=== PATIENT | female | born 1970 | race Hispanic/Latino ===

== ENCOUNTER 2018-04-16 17:45 | Emergency (ER) | payer OTHER ==
--- NOTE | 2018-04-16 18:46 | RAD ---
1 VIEW CHEST: Date: 04/16/18 \HISTORY: Pain. COMPARISON: None. FINDINGS: Normal cardiac silhouette. Pulmonary vessels and hilum are normal. Costophrenic angles are clear. No consolidation or mass. No pneumothorax or osseous abnormalities. IMPRESSION: No acute cardiopulmonary process. POS: [facility]
[2018-04-16 18:56] LABS: #Basophils 0.1 thou/uL (0.0-0.2); #Eosinphils 0.1 thou/uL (0.0-0.7); #Lymphocytes 2.4 thou/uL (1.20-3.40); #Monocytes 0.9 thou/uL (0.11-0.59); #Neutrophils 5.5 thou/uL (1.40-6.50); %Basophils 1.2 % (0.0-1.0); %Eosinophils 0.9 % (0.0-10.0); %Lymphocytes 26.5 % (21.0-51.0); %Monocytes 9.6 % (0.0-10.0); %Neutrophils 61.9 % (42.0-75.0); Hemoglobin 8.1 g/dL (12.0-16.0); Mean Corpuscular HGB CONC 30.1 g/dL (32.0-36.0); Mean Corpuscular Hemoglobin 22.4 pg (27.0-31.0); Mean Corpuscular Volume 74.4 fL (78.0-98.0); Mean Platelet Volume 11.7 fL (7.4-10.4); Platelet Count 245 thou/uL (130-400); RBC Distribution Width 15.3 % (11.5-14.5); Red Blood Cell (RBC) Count 3.61 mill/uL (4.20-5.40); White Blood Cell (WBC) Count 8.9 thou/uL (4.8-10.8)
[2018-04-16 19:15] LABS: ALT (SGPT) 8 U/L (8-55); AST (SGOT) 13 U/L (5-34); Albumin 3.7 g/dL (3.5-5.0); Alkaline Phosphatase 53 U/L (40-150); Anion Gap 13 mmol/L (10-20); BUN (Urea Nitrogen) 22 mg/dL (7.0-18.7); Bilirubin, Total 0.2 mg/dL (0.2-1.2); CK (CPK) 77 U/L (29-168); Calc. Creatinine Clearance 0 mL/min (70-130); Calcium 9.4 mg/dL (7.8-10.44); Carbon Dioxide 23 mmol/L (22-29); Chloride 104 mmol/L (98-107); Estimated GFR-MDRD 63; Globulin 3.4 g/dL (2.4-3.5); Glucose 124 mg/dL (70-105); Lipase 88 U/L (8-78); Potassium 4.6 mmol/L (3.5-5.1); Protein, Total 7.1 g/dL (6.0-8.3); Sodium 135 mmol/L (136-145)
[2018-04-16 19:16] LABS: Anisocytosis SLIGHT = 6-15 cells (100X) (0-5/hpf); Hypochromia SLIGHT = 6-15 cells (100X) (0-5/hpf); MDiff Complete? YES; Microcytosis SLIGHT = 6-15 cells (100X) (0-5/hpf); Ovalocytes SLIGHT = 2-5 cells (100X) (0-1/hpf); PLT Morphology Comment Appears Adequate; Polychromasia SLIGHT = 2-3 cells (100X) (0-2/hpf)
--- NOTE | 2018-04-16 19:19 | ULT ---
ULTRASOUND WITH DOPPLER DUPLEX VENOUS LOWER EXTREMITY LEFT 04/16/18 CPT: 99816 ICD-10-PCS: B54D HISTORY: Pain, edema. TECHNIQUE: Color flow Doppler, spectral waveform analysis of pulsed Doppler, and fermin-scale imaging with huy ramesh and augmentation, were used to evaluate the left common femoral, femoral, popliteal, posterior tibial, and superficial femoral, veins; and the proximal portions of the profunda femoral and greater saphenous, veins. FINDINGS: There is appropriate compressibility and flow within the imaged deep vein system of the left lower ex tremity. IMPRESSION: No DVT. POS: [facility]
[2018-04-16 19:20] LABS: CKMB 1.9 ng/mL (0-6.6); Troponin I Less than 0.010 ng/mL (< 0.028)
--- NOTE | 2018-04-16 20:31 | CT ---
HEAD CT WITHOUT CONTRAST: 04/16/18 HISTORY: Left arm, leg and face tingling. COMPARISON: None. TECHNIQUE: Noncontrast head CT is performed from skull base to skull vertex. FINDINGS: No parenchymal hemorrhage. No extra-axial hematoma. No midline shift. Basilar cisterns are patent. Br ain volume is age appropriate. Cortical fermin-white matter differentiation is preserved. Ventricles and sulci are patent and symmetric. Calvarium is intact. Adequate aeration of the sinuses and mastoid air cells. IMPRESSION: No acute intracranial process. POS: [facility]
--- NOTE | 2018-04-18 18:09 | EKG ---
Test Reason : Blood Pressure : / mmHG Vent. Rate : 087 BPM Atrial Rate : 087 BPM P-R Int : 122 ms QRS Dur : 076 ms QT Int : 382 ms P-R-T Axes : 032 010 048 degrees QTc Int : 459 ms Normal sinus rhythm Normal ECG Confirmed by BROOKLYN TREVIZO D.O. ([id number]), assistant editor CLYDE CARMONA ([id number]) on 04/18/2018 6:09:13 PM Referred By: Confirmed By:BROOKLYN TREVIZO D.O.
== END 2018-04-16 20:53 | disposition home or self-care (01) ==
LOC: ERS 17:45
DX: R07.89 Other chest pain (principal); F41.9 Anxiety disorder, unspecified; M79.89 Other specified soft tissue disorders; E10.9 Type 1 diabetes mellitus without complications; E78.5 Hyperlipidemia, unspecified; I10 Essential (primary) hypertension; Z79.899 Other long term (current) drug therapy
CPT/HCPCS: 36415; 70450; 71045; 80053; 82550; 82553; 83690; 84484; 85025; 85652; 86140; 93005

== ENCOUNTER 2018-05-15 15:14 | Inpatient (IN) | payer OTHER ==
[2018-05-15 16:44] LABS: #Basophils 0.1 thou/uL (0.0-0.2); #Eosinphils 0.1 thou/uL (0.0-0.7); #Lymphocytes 1.7 thou/uL (1.20-3.40); #Monocytes 0.8 thou/uL (0.11-0.59); #Neutrophils 5.6 thou/uL (1.40-6.50); %Basophils 0.8 % (0.0-1.0); %Eosinophils 0.9 % (0.0-10.0); %Lymphocytes 20.8 % (21.0-51.0); %Monocytes 9.9 % (0.0-10.0); %Neutrophils 67.6 % (42.0-75.0); Hemoglobin 6.7 g/dL (12.0-16.0); Mean Corpuscular HGB CONC 28.7 g/dL (32.0-36.0); Mean Corpuscular Hemoglobin 20.5 pg (27.0-31.0); Mean Corpuscular Volume 71.5 fL (78.0-98.0); Mean Platelet Volume 11.5 fL (7.4-10.4); Platelet Count 262 thou/uL (130-400); RBC Distribution Width 15.7 % (11.5-14.5); Red Blood Cell (RBC) Count 3.24 mill/uL (4.20-5.40); White Blood Cell (WBC) Count 8.3 thou/uL (4.8-10.8)
[2018-05-15 17:06] LABS: ALT (SGPT) 8 U/L (8-55); AST (SGOT) 12 U/L (5-34); Albumin 3.6 g/dL (3.5-5.0); Alkaline Phosphatase 55 U/L (40-150); Anion Gap 10 mmol/L (10-20); BUN (Urea Nitrogen) 23 mg/dL (7.0-18.7); Bilirubin, Total Less than 0.2 mg/dL (0.2-1.2); Calc. Creatinine Clearance 0 mL/min (70-130); Calcium 8.7 mg/dL (7.8-10.44); Carbon Dioxide 27 mmol/L (22-29); Chloride 105 mmol/L (98-107); Estimated GFR-MDRD 71; Globulin 3.2 g/dL (2.4-3.5); Glucose 238 mg/dL (70-105); Potassium 4.6 mmol/L (3.5-5.1); Protein, Total 6.8 g/dL (6.0-8.3); Sodium 137 mmol/L (136-145)
[2018-05-15 17:08] LABS: Anisocytosis SLIGHT = 6-15 cells (100X) (0-5/hpf); Hypochromia SLIGHT = 6-15 cells (100X) (0-5/hpf); MDiff Complete? YES; Microcytosis SLIGHT = 6-15 cells (100X) (0-5/hpf); Ovalocytes SLIGHT = 2-5 cells (100X) (0-1/hpf); PLT Morphology Comment Appears Adequate; Poikilocytosis SLIGHT = 6-15 cells (100X) (0-5/hpf); Polychromasia SLIGHT = 2-3 cells (100X) (0-2/hpf); Schistocytes SLIGHT = 2-5 cells (100X) (0-1/hpf); Target Cells SLIGHT = 2-5 cells (100X) (0-1/hpf); Tear Drops SLIGHT = 2-5 cells (100X) (0-1/hpf)
[2018-05-15 17:16] LABS: Prothrombin Time 12.8 SEC (12.0-14.7)
[2018-05-15 17:18] LABS: BHCG - Serum Negative (NEGATIVE); Pregs Control Background? CLEAR/WHITE (CLR/WHITE); Pregs Control Bar Appear? YES (CONTROL BAR)
[2018-05-15 17:50] LABS: CKMB 2.6 ng/mL (0-6.6); Troponin I Less than 0.010 ng/mL (< 0.028)
[2018-05-15] MEDS ORDERED: diphenhydrAMINE 25 MG CAP ONE (20:09)
--- NOTE | 2018-05-15 20:21 | RAD ---
AP VIEW CHEST: 05/15/18 HISTORY: Dyspnea. AP view chest is obtained on 05/15/18. Comparison is made to previous exam from 04/16/18. AP view chest demonstrates some cardiomegaly seen. Pulmonary vascular congestion seen. No evidence of effusions, pneumonia or pneumothorax seen. IMPRESSION: Cardiomegaly and pulmonary vascular congestion. POS: [facility]
[2018-05-15 20:35] LABS: Bilirubin Negative (Negative); Blood, Urine Trace (Negative); Clarity CLEAR (Clear); Glucose, Urine (Dipstick) Negative (Negative); Leukocyte Negative (Negative); Nitrite Negative (Negative); Protein, Urine (Dipstick) Negative (Neg-Trace); Urobilinogen 0.2 mg/dL (0.2-1.0)
[2018-05-15 20:37] LABS: Bacteria/HPF None Seen HPF (None Seen); Hyaline Casts/LPF 0-3 HYALINE CAST LPF (0-3 Hyaline); Pathc Cast-AUWi Flag 0.14 (0-2.49); Squamous Epithelial 0-3 HPF (0-3); WBC/HPF None Seen HPF (0-3)
[2018-05-15] MEDS ORDERED: Acetaminophen 325 MG TAB PO PRN (20:53)
[2018-05-15 21:17] LABS: Iron 16 ug/dL (50-170); Iron Binding Capacity, Total 423 mcg/dL (265-497)
[2018-05-15 21:38] VITALS: BMI 42.4
[2018-05-15 22:21] LABS: Folate (Folic Acid) 11.4 ng/mL (7.0-31.4)
[2018-05-16] MEDS ORDERED: Dextrose 50% Abboject 50 ML SYRINGE SLOW IVP PRN (01:20)
[2018-05-16] MEDS ORDERED: Dextrose 5% in Water 1,000 ML IV PRN (01:20)
[2018-05-16] MEDS ORDERED: HumaLOG 300 UNITS/3 ML VIAL SC PRN ×2 (01:20)
[2018-05-16] MEDS ORDERED: Iron Sucrose Complex 200 MG in Sodium Chloride 0.9% 250 ML 250 ML IVPB SCH (01:30)
[2018-05-16] MEDS ORDERED: Iron, Sodium Ferric Gluconate 250 MG in Sodium Chloride 0.9% 100 ML IVPB SCH (02:30)
[2018-05-16 05:35] LABS: #Basophils 0.1 thou/uL (0.0-0.2); #Eosinphils 0.1 thou/uL (0.0-0.7); #Lymphocytes 2.3 thou/uL (1.20-3.40); #Neutrophils 5.6 thou/uL (1.40-6.50); %Basophils 0.9 % (0.0-1.0); %Eosinophils 1.3 % (0.0-10.0); %Lymphocytes 24.9 % (21.0-51.0); %Monocytes 11.3 % (0.0-10.0); %Neutrophils 61.6 % (42.0-75.0); Hemoglobin 8.3 g/dL (12.0-16.0); Mean Corpuscular HGB CONC 30.6 g/dL (32.0-36.0); Mean Corpuscular Hemoglobin 22.7 pg (27.0-31.0); Mean Corpuscular Volume 74.1 fL (78.0-98.0); Platelet Count 239 thou/uL (130-400); RBC Distribution Width 18.8 % (11.5-14.5); Red Blood Cell (RBC) Count 3.65 mill/uL (4.20-5.40); White Blood Cell (WBC) Count 9.1 thou/uL (4.8-10.8)
[2018-05-16 05:41] LABS: Anion Gap 9 mmol/L (10-20); BUN (Urea Nitrogen) 16 mg/dL (7.0-18.7); Calc. Creatinine Clearance 148 mL/min (70-130); Calcium 8.8 mg/dL (7.8-10.44); Carbon Dioxide 27 mmol/L (22-29); Chloride 106 mmol/L (98-107); Estimated GFR-MDRD 79; Glucose 151 mg/dL (70-105); Potassium 4.7 mmol/L (3.5-5.1); Sodium 137 mmol/L (136-145)
--- NOTE | 2018-05-16 07:35 | HP ---
CHIEF COMPLAINT: Heavy menstrual bleed. HISTORY OF PRESENT ILLNESS: This is a 48-year-old female with past medical history of menorrhagia, presenting with a chief complaint of heavy menstrual bleed which has been ongoing for the past 6 months. Per the patient, she goes through about 6-5 pads within an hour, and the patient states that the menstrual flow is so heavy and in the past her menstruation was used to last for 15 days, currently, it has been lower to 4-5 days; however, is very heavy and due to this, she has been having generalized weakness, feeling faint, sometimes shortness of breath. The patient states that she was seen by the [employer] doctor and was examined and an ultrasound was done a month ago and it was found that she has a uterine fibroid and she states that the fibroid was described as the size of a softball and the patient has a surgical procedure scheduled this month to have these fibroids removed. The patient is currently complaining of abdominal pain with deep palpation at the suprapubic region. The patient denies any fever, nausea, vomiting, chest pain, dysuria, constipation, diarrhea. REVIEW OF SYSTEMS: Positive for heavy menstrual bleed, suprapubic pain with palpation, dizziness, shortness of breath, generalized weakness, otherwise as documented in the HPI. All other systems are reviewed and are negative. PAST MEDICAL HISTORY: Diabetes mellitus type 2, hyperlipidemia, hypertension, hernia, menorrhagia. PAST SURGICAL HISTORY: Cholecystectomy, history of . FAMILY HISTORY: Reviewed and noncontributory to this visit. PSYCHIATRIC HISTORY: The patient has history of anxiety. SOCIAL HISTORY: The patient lives in senior living. The patient is imprisoned. The patient denies alcohol use. The patient denies any illicit drug use. The patient states that she quit smoking a year ago after the patient was incarcerated. ALLERGIES: No known drug allergies. CURRENT MEDICATIONS: The patient is on lisinopril 20 mg, lactulose 10 mg, NPH 20 units, atorvastatin 10 mg, ferrous gluconate, fluoxetine. PHYSICAL EXAMINATION: VITAL SIGNS: Blood pressure is 157/84, pulse of 99, respiratory rate of 18, temperature of 98.8, O2 sat of 99. GENERAL: The patient is lying in bed, does not appear to be in any distress. The patient is very pleasant. HEENT: Normocephalic, atraumatic. Pupils are equally round and react to light. Extraocular movements are intact. No scleral icterus. The patient do have conjunctival pallor. Mucous membranes are dry. NECK: Trachea is midline. Full range of motion. No meningeal signs. Supple. LUNGS: Clear to auscultation bilaterally. No wheezing, no rales, no rhonchi is appreciated. CARDIOVASCULAR: Positive S1, S2, regular rate and rhythm. No murmurs, no gallops, no rubs appreciated. ABDOMEN: Soft, obese abdomen, positive tenderness at the suprapubic area, palpable masses can be appreciated at the suprapubic area with deep palpation. No peritoneal signs. Positive bowel sounds in all quadrants. EXTREMITIES: Upper extremity, the patient has a 5/5 upper extremity strength, good pulses bilaterally. Lower extremity, the patient has a 5/5 lower extremity strength, good pulses bilaterally. NEUROLOGIC: Cranial nerves II through XII grossly intact. No neurologic deficits noted. SKIN: Warm, dry, and intact. IMAGING: EKG, the patient has sinus rhythm at the rate of 88. A chest x-ray showed cardiomegaly with some pulmonary congestion. ED COURSE: The patient had Benadryl 25 mg and a PRBC has been ordered. LABORATORY DATA: WBC is 8.3, hemoglobin is 6.7, hematocrit is 23.2, platelet count 662. PT is 12.8, INR is 1.0, PTT 26.0. Sodium 137, potassium is 4.6, chloride 105, carbon dioxide 27, total bilirubin is less than 0.2. Ferritin is less than 2, TIBC is 42, iron is 16%, saturation is 4. Lipase is 64. ASSESSMENT AND PLAN: This is a 48-year-old female being admitted for: 1. Anemia of acute blood loss due to menorrhagia. The patient has a fibroid, which was seen on ultrasound. At this point, we will get another transvaginal ultrasound. We will get [employer]ATIONS MANAGER consult and we will start the patient on IV Venofer since the patient has severe iron deficiency anemia. 2. Anemia, due to iron deficiency. At this point, we will start the patient on Venofer. We will continue Venofer and will suggest the patient gets vitamin C with this oral iron. 3. Hypertension. Continue the patient on current home medications. 4. Hyperlipidemia. Continue the patient on current home medications. 5. Diabetes mellitus. Continue the patient on current home medications. Continue insulin sliding scale. 6. Deep venous thrombosis and gastrointestinal prophylaxis. MTDD
[2018-05-16] MEDS ORDERED: Acetaminophen 500 MG TAB PO PRN (08:00)
[2018-05-16] MEDS ORDERED: Eucerin (Mineral Oil/Petrolatum,White) 30 gm Jar TOP PRN (08:00)
[2018-05-16] MEDS ORDERED: Calcium Carbonate 500 MG ChewTAB PO PRN (08:00)
[2018-05-16] MEDS ORDERED: Zolpidem Tartrate 5 MG TAB PO PRN (08:00)
[2018-05-16] MEDS ORDERED: Loperamide HCl 2 MG CAP PO PRN (08:00)
[2018-05-16] MEDS ORDERED: Diabetic Tussin 200 MG/10 ML UDCUP PO PRN (08:00)
[2018-05-16] MEDS ORDERED: Artificial Tears 18 DROP/0.9 ML EA EYE PRN (08:00)
[2018-05-16] MEDS ORDERED: Bisacodyl 5 MG TAB PO PRN (08:00)
[2018-05-16] MEDS ORDERED: Ondansetron ODT 4 MG TAB PO PRN (08:00)
[2018-05-16] MEDS ORDERED: Loratadine 10 MG TAB PO PRN (08:00)
[2018-05-16] MEDS ORDERED: cloNIDine 0.1 MG TAB PO PRN (08:00)
[2018-05-16] MEDS ORDERED: hydrALAZINE 20 MG/ML VIAL SLOW IVP PRN (08:00)
[2018-05-16] MEDS ORDERED: Ondansetron PF 4 MG/2 ML Vial IVP PRN (08:00)
[2018-05-16] MEDS ORDERED: Sodium Chloride 0.65% Nasal 44 ML BOT EA NARE PRN (08:00)
[2018-05-16] MEDS ORDERED: Cepastat Lozenges 1 LOZ PO PRN (08:00)
[2018-05-16] MEDS ORDERED: Senokot S 8.6-50 MG TAB PO PRN (08:00)
[2018-05-16] MEDS ORDERED: Non-Formulary Item 1 EACH (Fluoxetine Hcl [Fluoxetine Hcl] 20 MG) PO SCH (09:00)
[2018-05-16] MEDS ORDERED: Non-Formulary Item 1 EACH (Lactulose [Lactulose] 10 GM) PO SCH (09:00)
[2018-05-16] MEDS: Lisinopril 20 MG TAB PO SCH (10:26)
[2018-05-16] MEDS: Ferrous Sulfate 325 MG TAB PO SCH ×2 (10:27→17:08)
[2018-05-16] MEDS: FLUoxetine HCl 20 MG CAP PO SCH (10:27)
[2018-05-16] MEDS: Atorvastatin Calcium 10 MG TAB PO SCH (10:27)
[2018-05-16] MEDS: NPH, Human Insulin Isophane 300 UNIT/3 ML VIAL SC SCH (10:28)
--- NOTE | 2018-05-16 11:13 | PDOC.PN ---
- Subjective Encounter Start Date: 05/16/18 Encounter Start Time: 08:00 -: old records requested/rev Patient seen and examined. No new complaints. No overnight events - Objective Resuscitation Status: Resuscitation Status FULL:Full Resuscitation MAR Reviewed: Yes Vital Signs & Weight: Vital Signs (12 hours) Temp Pulse Pulse Resp BP BP BP 05/16/18 10:26 145/84 H 05/16/18 08:00 05/16/18 07:31 98.5 F 80 16 05/16/18 04:40 98.3 F 76 18 105/50 L 05/16/18 04:00 98.7 F 77 18 05/16/18 01:32 98.4 F 78 18 128/64 05/16/18 01:08 98.2 F 79 18 122/75 05/16/18 00:20 98.7 F 81 16 BP Pulse Ox 05/16/18 10:26 05/16/18 08:00 96 05/16/18 07:31 145/84 H 96 05/16/18 04:40 95 05/16/18 04:00 151/85 H 97 05/16/18 01:32 95 05/16/18 01:08 96 05/16/18 00:20 133/76 97 Weight Weight 232 lb I&O: 05/15/18 05/16/18 05/17/18 06:59 06:59 05:59 Intake Total 350 Balance 350 Result Diagrams: 05/16/18 05:18 05/16/18 05:18 Additional Labs: Accuchecks 05/16/18 04:23 POC Glucose 159 H Phys Exam - Physical Examination Constitutional: NAD HEENT: PERRLA, moist MMs, sclera anicteric Neck: no JVD, supple Respiratory: no wheezing, no rales, no rhonchi Cardiovascular: RRR, no significant murmur, no rub Gastrointestinal: soft, non-tender, no distention, positive bowel sounds Musculoskeletal: no edema, pulses present Neurological: non-focal, normal sensation, moves all 4 limbs Psychiatric: normal affect, A&O x 3 Skin: no rash, normal turgor Dx/Plan (1) Iron deficiency anemia due to chronic blood loss Code(s): D50.0 - IRON DEFICIENCY ANEMIA SECONDARY TO BLOOD LOSS (CHRONIC) Status: Acute (2) Menorrhagia Code(s): N92.0 - EXCESSIVE AND FREQUENT MENSTRUATION WITH REGULAR CYCLE Status : Acute (3) Symptomatic anemia Code(s): D64.9 - ANEMIA, UNSPECIFIED Status: Acute (4) Anxiety and depression Code(s): F41.9 - ANXIETY DISORDER, UNSPECIFIED; F32.9 - MAJOR DEPRESSIVE DISORDER, SINGLE EPISODE, UNSPECIFIED Status: Chronic (5) Diabetes type 2, controlled Code(s): E11.9 - TYPE 2 DIABETES MELLITUS WITHOUT COMPLICATIONS Status: Chronic (6) Dyslipidemia Code(s): E78.5 - HYPERLIPIDEMIA, UNSPECIFIED Status: Chronic (7) Hypertension Code(s): I10 - ESSENTIAL (PRIMARY) HYPERTENSION Status: Chronic (8) Morbid obesity with BMI of 40.0-44.9, adult Code(s): E66.01 - MORBID (SEVERE) OBESITY DUE TO EXCESS CALORIES; Z68.41 - BODY MASS INDEX (BMI) 40.0-44.9, ADULT Status: Chronic - Plan cont current plan of care * 2 unit prbc give, one bag of IV iron given * will repeat labs tomorrow * will give another bag of iron tomorrow * check fobt * US pelvis done and OB-etymology professor consulted for menorrhagia * medication reviewed as below * symptomatic treatment. Review of Systems - Review of Systems ENT: negative: Ear Pain, Ear Discharge, Nose Pain, Nose Discharge, Nose Congestion, Mouth Pain, Mouth Swelling, Throat Pain, Throat Swelling, Other Respiratory: negative: Cough, Dry, Shortness of Breath, Hemoptysis, SOB with Excertion, Pleuritic Pain, Sputum, Wheezing Cardiovascular: negative: chest pain, palpitations, orthopnea, paroxysmal nocturnal dyspnea, edema, light headedness, other Gastrointestinal: negative: Nausea, Vomiting, Abdominal Pain, Diarrhea, Constipation, Melena, Hematochezia, Other Genitourinary: negative: Dysuria, Frequency, Incontinence, Hematuria, Retention , Other Musculoskeletal: negative: Neck Pain, Shoulder Pain, Arm Pain, Back Pain, Hand Pain, Leg Pain, Foot Pain, Other Skin: negative: Rash, Lesions, Davis, Bruising, Other - Medications/Allergies Allergies/Adverse Reactions: Allergies Allergy/AdvReac Type Severity Reaction Status Date / Time No Known Drug Allergies Allergy Verified 05/15/18 22:29 Medications: Current Medications Acetaminophen (Tylenol) 500 mg PO Q6H PRN PRN Reason: Mild Pain (1-3) Hydrocodone Bitart/Acetaminophen ([place] 5/325) 1 tab PO Q4H PRN PRN Reason: Moderate Pain (4-6) Artificial Tears (Tears Naturale) 2 drop EA EYE PRN PRN PRN Reason: Dry Eyes Atorvastatin Calcium (Lipitor) 10 mg PO DAILY [facility] Last Admin: 05/16/18 10:27 Dose: 10 mg Bisacodyl (Dulcolax) 10 mg PO DAILYPRN PRN PRN Reason: Constipation Calcium Carbonate (Tums) 1,000 mg PO Q4H PRN PRN Reason: Heartburn or Indigestion Clonidine (Catapres) 0.1 mg PO Q4H PRN PRN Reason: SBP > ____ Dextrose/Water (Dextrose 50%) 25 gm SLOW IVP PRN PRN PRN Reason: Hypoglycemia Ferrous Sulfate (Feosol) 325 mg PO BID-[facility] Last Admin: 05/16/18 10:27 Dose: 325 mg Fluoxetine HCl (Prozac) 20 mg PO DAILY [facility] Last Admin: 05/16/18 10:27 Dose: 20 mg Glucagon (Glucagon) 1 mg IM PRN PRN PRN Reason: Hypoglycemia Guaifenesin (Robitussin Sf) 200 mg PO Q4H PRN PRN Reason: Cough Hydralazine HCl (Apresoline) 10 mg SLOW IVP Q4H PRN PRN Reason: SBP > 180 and HR < 70 Dextrose/Water (D5w) 1,000 mls @ 0 mls/hr IV .Q0M PRN PRN Reason: Hypoglycemia Insulin Human Lispro (Humalog) 0 units SC .MILD SLIDING SCALE PRN PRN Reason: Mild Correctional Scale Insulin Human Lispro (Humalog) 0 units SC .BEDTIME SLIDING SC PRN PRN Reason: Bedtime Correctional Scale Insulin Human NPH (Humulin N) 20 unit SC DAILY [facility] Last Admin: 05/16/18 10:28 Dose: 20 unit Lactulose (Lactulose) 10 gm PO DAILY [facility] Last Admin: 05/16/18 10:26 Dose: 10 gm Lisinopril (Zestril) 20 mg PO DAILY [facility] Last Admin: 05/16/18 10:26 Dose: 20 mg Loperamide HCl (Imodium) 2 mg PO PRN PRN PRN Reason: Diarrhea/Loose Stools Loratadine (Claritin) 10 mg PO DAILYPRN PRN PRN Reason: Sinus Symptoms Mineral Oil/White Petrolatum (Eucerin Cream) 0 gm TOP BIDPRN PRN PRN Reason: Dry Skin Ondansetron HCl (Zofran Odt) 4 mg PO Q6H PRN PRN Reason: Nausea/Vomiting Ondansetron HCl (Zofran) 4 mg IVP Q6H PRN PRN Reason: Nausea/Vomiting Senna/Docusate Sodium (Senokot S) 2 tab PO BID PRN PRN Reason: Constipation Sodium Chloride (Flush - Normal Saline) 10 ml IVF Q12HR PRN PRN Reason: Saline Flush Sodium Chloride (Flush - Normal Saline) 10 ml IVF PRN PRN PRN Reason: Saline Flush Sodium Chloride ([place] Nasal [place] 0.65%) 0 ml EA NARE QIDPRN PRN PRN Reason: Nasal Congestion Throat Lozenges (Cepastat Lozenges) 1 hero PO Q2H PRN PRN Reason: Sore Throat Zolpidem Tartrate (Ambien) 5 mg PO HSPRN PRN PRN Reason: Insomnia
--- NOTE | 2018-05-16 12:49 | CON ---
DATE OF CONSULTATION: 05/16/2018 CONSULTING PHYSICIAN: Alex Liang D.O. CHIEF COMPLAINT: Anemia. HISTORY OF PRESENT ILLNESS: This is a 48-year-old female who is currently in half-way and had a recent blood draw, which showed severe anemia. She was transported to the hospital for evaluation and management. She reports that she has a history of heavy menstrual cycles that are regular. She sees Dr. Erin Tijerina at [facility] and is set up for hysterectomy in 2 weeks. She does have a history of fibroids as well. She is not currently bleeding and has not for the last week. Her last period was approximately a week ago and was not heavy, lasting only 3 days. She denies any significant pain or other concerns at this time. REVIEW OF SYSTEMS: Negative for head, eyes, ears, nose, throat, cardiovascular , respiratory, GI, , neuro, psych, musculoskeletal, skin or constitutional symptoms other than mentioned above. PAST MEDICAL HISTORY: 1. Type 2 diabetes. 2. Dyslipidemia. 3. Hypertension. 4. Morbid obesity. 5. Anxiety and depression. 6. Anemia. 7. Fibroids. PAST SURGICAL HISTORY: 1. Cholecystectomy. 2. x1. MEDICATIONS: 1. Lisinopril 20 mg daily. 2. Lactulose 10 mg. 3. NPH 20 units. 4. Atorvastatin 10 mg. 5. Ferrous gluconate. 6. Fluoxetine. ALLERGIES: No known drug allergies. SOCIAL HISTORY: History of tobacco use, but no current use in the last year. Denies any alcohol or drug use. She is currently in half-way and will be there for at least one more year. FAMILY HISTORY: Noncontributory. PHYSICAL EXAMINATION: VITAL SIGNS: Blood pressure 137/77, pulse 77, respiratory rate 18, temperature 98.4. GENERAL: Awake, alert, in no acute distress. CHEST: Nonlabored breathing. ABDOMEN: Obese, soft, nontender to palpation. PELVIC: Deferred. LABORATORY DATA: Hemoglobin on admission 6.7, hematocrit 23.2. After transfusion of blood products, 8.3 and 27.1 respectively. IMAGING: Transvaginal ultrasound was performed and has not been read yet, but the appearance is consistent with fibroids with no thickened endometrium or other notable abnormalities. ASSESSMENT AND PLAN: A 48-year-old patient with known history of fibroids who is already scheduled for hysterectomy in [address] Erin Tijerina. She is not having any acute vaginal bleeding at this time, therefore needs nothing from a gynecologic standpoint. Once she has received her blood, she should be okay for discharge back to half-way to follow up with Dr. Tijerina in clinic as scheduled. MTDD
--- NOTE | 2018-05-16 12:49 | ULT ---
PELVIC ULTRASOUND: HISTORY: Menorrhagia. FINDINGS: Real-time imaging of the pelvis was obtained both transabdominally as well as with an endovaginal pro be. The uterus appears somewhat enlarged. It measures approximately 3.2 x 6 x 9.2 cm in size. Within th e fundus region is an area of altered echogenicity which appears to represent a large fibroid. It me asures approximately 7.7 x 8.6 cm in size. The endometrium is somewhat difficult to assess but does not appear thickened. The right ovary is not visualized. There is a follicle seen involving the left adnexa measuring in t he 2 cm range. No free fluid is demonstrated. DOPPLER EVALUATION WITH SPECTRAL ANALYSIS: I cannot definitely demonstrate flow to the left ovary, but this is probably related to its position. IMPRESSION: 1. Large uterine fibroid. 2. A 2 cm left ovarian cyst. 3. Nonvisualization of the right ovary. POS: [facility]
[2018-05-16] MEDS: HYDROcodone/Acetaminophen 5/325 mg Tablet PO PRN (20:19)
[2018-05-17] MEDS ORDERED: Iron Sucrose Complex 200 MG in Sodium Chloride 0.9% 250 ML 250 ML IVPB SCH (07:45)
[2018-05-17] MEDS ORDERED: Iron, Sodium Ferric Gluconate 250 MG in Sodium Chloride 0.9% 250 ML 250 ML IVPB SCH (08:00)
[2018-05-17 08:01] VITALS: BP 123/70; TEMP 98.4
[2018-05-17 08:30] LABS: #Basophils 0.1 thou/uL (0.0-0.2); #Eosinphils 0.1 thou/uL (0.0-0.7); #Lymphocytes 1.9 thou/uL (1.20-3.40); %Basophils 0.9 % (0.0-1.0); %Eosinophils 1.1 % (0.0-10.0); %Lymphocytes 21.4 % (21.0-51.0); %Monocytes 10.5 % (0.0-10.0); %Neutrophils 66.1 % (42.0-75.0); Hemoglobin 8.8 g/dL (12.0-16.0); Mean Corpuscular HGB CONC 30.2 g/dL (32.0-36.0); Mean Corpuscular Hemoglobin 22.2 pg (27.0-31.0); Mean Corpuscular Volume 73.6 fL (78.0-98.0); Mean Platelet Volume 11.6 fL (7.4-10.4); Platelet Count 259 thou/uL (130-400); RBC Distribution Width 19.1 % (11.5-14.5); Red Blood Cell (RBC) Count 3.97 mill/uL (4.20-5.40)
--- NOTE | 2018-05-17 08:31 | DIS ---
DATE OF ADMISSION: 05/15/2018 DATE OF DISCHARGE: 05/17/2018 PRIMARY CARE PHYSICIAN: [facility] call admission. DISCHARGE DISPOSITION: Home. PRIMARY DISCHARGE DIAGNOSES: Symptomatic iron deficiency anemia due to chronic blood loss secondary to menorrhagia. SECONDARY DISCHARGE DIAGNOSES: Uterine fibroid, morbid obesity with BMI 42, hypertension, dyslipidemia, diabetes type 2, anxiety and depression, chronic iron deficiency anemia a nd menorrhagia. PRIMARY PROCEDURE AND OPERATION: None. RADIOLOGICAL INVESTIGATION: Chest x-ray normal. Ultrasound pelvis showed uterine fibroid. SIGNIFICANT LABORATORY DATA: WBC 9.1, hemoglobin 8.3, platelet 239. INR 1.0. Sodium 137, potassium 4.7, BUN 16, creatinine 0.78, calcium 8.8. Urinalysis normal. DISCHARGE PLAN: Post hospital, the patient will follow up with primary care physician in 1 week. patient already has outpatient appointment for hysterectomy with Dr. Erin Tijerina. INPATIENT CONSULTANTS: Dr. Mitzi Cartagena was consulted while in hospital. TEST RESULTS PENDING ON DISCHARGE: None. ALLERGIES: No known drug allergy. HOSPITAL COURSE: A 48-year-old female who was admitted by Dr. Liang. Please see his H&P for furthe r detail. This patient has uterine fibroid and menorrhagia and because of that, she has chronic bloo d loss. This time, she was admitted for severe symptomatic anemia. She was given 2 units of blood t ransfusion. She was also given 2 doses of iron infusion while in hospital. We did ultrasound pelvis that confirmed uterine fibroid. This patient already has outpatient appointment with Dr. Erin martin for hysterectomy for her menorrhagia and uterine fibroid. While in hospital, we also consulted Dr. Mitzi Cartagena and she recommended that from her perspective, she does not have any new recommenda tion other than she will need outpatient followup with PCP and [employer]ENT. At this point, the patient is hemodynamically stable. The patient feels better. She is given ferrou s sulfate 325 mg p.o. b.i.d. She will continue all her previous home medication. The patient is seen and examined. The review of systems reviewed and negative. PHYSICAL EXAMINATION: VITAL SIGNS: Today, temperature 98.9, pulse 77, respiratory rate 20, saturation 99% on room air, blo od pressure 134/79. Her examination is normal. DISCHARGE MEDICATIONS: Lipitor 10 mg p.o. daily, Prozac 20 mg p.o. daily, lactulose 10 grams p.o. da jessica, lisinopril 20 mg p.o. daily, NPH insulin 20 units subcu daily, ferrous sulfate 325 mg p.o. b.i.d . During this admission course, the patient had a negative occult blood. The patient is medically stable for discharge today.
[2018-05-17] MEDS: Atorvastatin Calcium 10 MG TAB PO SCH (08:35)
[2018-05-17] MEDS: FLUoxetine HCl 20 MG CAP PO SCH (08:35)
[2018-05-17] MEDS: Lisinopril 20 MG TAB PO SCH (08:35)
[2018-05-17] MEDS: Ferrous Sulfate 325 MG TAB PO SCH (08:35)
[2018-05-17] MEDS: NPH, Human Insulin Isophane 300 UNIT/3 ML VIAL SC SCH (08:39)
[2018-05-17] MEDS: HYDROcodone/Acetaminophen 5/325 mg Tablet PO PRN (08:41)
== END 2018-05-17 13:17 | DRG 760 ==
LOC: ERS 15:14 → T4-A 21:19
PROVIDERS: ADMIT Family Medicine; ATTEND Family Medicine
PROC: 30233N1 Transfusion of Nonautologous Red Blood Cells into Peripheral Vein, Percutaneous Approach (ICD-10-PCS; principal; 2018-05-15)
DX: N92.0 Excessive and frequent menstruation with regular cycle (principal); Z68.41 Body mass index [BMI] 40.0-44.9, adult; D62 Acute posthemorrhagic anemia; F41.9 Anxiety disorder, unspecified; F32.9 Major depressive disorder, single episode, unspecified; E11.9 Type 2 diabetes mellitus without complications; E78.5 Hyperlipidemia, unspecified; I10 Essential (primary) hypertension; E66.01 Morbid (severe) obesity due to excess calories; D25.9 Leiomyoma of uterus, unspecified; Z87.891 Personal history of nicotine dependence
CPT/HCPCS: 36415; 36416; 36430; 71045; 76856; 80048; 80053; 81003; 81015; 82274; 82553; 82607; 82728; 82746; 83540; 83550; 83690; 83880; 84484; 84703; 85025; 85046; 85610; 85730; 86850; 86900; 86901; 93005; J1815; J2916; J7050; P9016

== ENCOUNTER 2018-06-15 05:38 | Inpatient (IN) | payer OTHER ==
[2018-06-12 12:02] VITALS: BMI 40.6
[2018-06-15] MEDS ORDERED: Gabapentin 300 MG CAP ONE (06:24)
[2018-06-15] MEDS ORDERED: CEFAZOLIN 2 GM/50 ML BAG ONE (06:25)
[2018-06-15 06:52] LABS: #Basophils 0.1 thou/uL (0.0-0.2); #Eosinphils 0.1 thou/uL (0.0-0.7); #Monocytes 0.8 thou/uL (0.11-0.59); #Neutrophils 4.8 thou/uL (1.40-6.50); %Basophils 0.8 % (0.0-1.0); %Eosinophils 0.6 % (0.0-10.0); %Lymphocytes 26.1 % (21.0-51.0); %Monocytes 10.1 % (0.0-10.0); %Neutrophils 62.4 % (42.0-75.0); Hemoglobin 12.1 g/dL (12.0-16.0); Mean Corpuscular HGB CONC 30.6 g/dL (32.0-36.0); Mean Corpuscular Hemoglobin 25.2 pg (27.0-31.0); Mean Corpuscular Volume 82.6 fL (78.0-98.0); Mean Platelet Volume 8.3 fL (7.4-10.4); Platelet Count 198 thou/uL (130-400); RBC Distribution Width 23.8 % (11.5-14.5); Red Blood Cell (RBC) Count 4.79 mill/uL (4.20-5.40); White Blood Cell (WBC) Count 7.7 thou/uL (4.8-10.8)
[2018-06-15] MEDS ORDERED: Bupivacaine HCl 0.5%/Epinephrine 1:200,000/PF 30 ml Vial ONE (06:52)
[2018-06-15] MEDS ORDERED: Fentanyl 250 MCG/5 ML VIAL ONE (07:01)
[2018-06-15 07:04] LABS: Hemoglobin A1c 6.1 % (4.0-6.0)
[2018-06-15 07:09] LABS: ALT (SGPT) 8 U/L (8-55); AST (SGOT) 12 U/L (5-34); Alkaline Phosphatase 67 U/L (40-150); Anion Gap 11 mmol/L (10-20); BUN (Urea Nitrogen) 17 mg/dL (7.0-18.7); Bilirubin, Total 0.4 mg/dL (0.2-1.2); Calc. Creatinine Clearance 129 mL/min (70-130); Carbon Dioxide 26 mmol/L (22-29); Chloride 105 mmol/L (98-107); Estimated GFR-MDRD 71; Globulin 3.6 g/dL (2.4-3.5); Glucose 152 mg/dL (70-105); Potassium 4.7 mmol/L (3.5-5.1); Protein, Total 7.6 g/dL (6.0-8.3); Sodium 137 mmol/L (136-145)
[2018-06-15 07:21] LABS: Anisocytosis SLIGHT = 6-15 cells (100X) (0-5/hpf); Elliptocytes SLIGHT = 2-5 cells (100X) (0-1/hpf); Hypochromia SLIGHT = 6-15 cells (100X) (0-5/hpf); MDiff Complete? YES; PLT Morphology Comment Appears Adequate
[2018-06-15] MEDS ORDERED: Midazolam HCl 2 mg/2 ml Vial ONE (07:25)
[2018-06-15] MEDS ORDERED: Simethicone Chewable 80 MG TAB PO PRN (10:15)
[2018-06-15] MEDS ORDERED: Promethazine HCl 25 MG/ML VIAL ONE (10:15)
[2018-06-15] MEDS ORDERED: Bisacodyl 10 MG SUPP PR PRN (10:15)
[2018-06-15] MEDS ORDERED: Ondansetron PF 4 MG/2 ML Vial IVP PRN (10:15)
[2018-06-15] MEDS ORDERED: Zolpidem Tartrate 5 MG TAB PO PRN (10:15)
[2018-06-15] MEDS ORDERED: Acetaminophen 325 MG TAB PO PRN (10:15)
[2018-06-15] MEDS ORDERED: Promethazine HCl 25 MG/ML VIAL IM PRN ×2 (10:15→12:00)
[2018-06-15] MEDS ORDERED: diphenhydrAMINE 25 MG CAP PO PRN (10:15)
[2018-06-15] MEDS ORDERED: Morphine 2 MG/ML SYRINGE SLOW IVP PRN (10:15)
[2018-06-15] MEDS ORDERED: Acetaminophen/Codeine 30-300mg Tablet PO PRN ×2 (10:15)
[2018-06-15] MEDS ORDERED: Insulin Regular 300 UNITS/3 ML VIAL SC PRN (10:19)
[2018-06-15] MEDS ORDERED: Fentanyl 100 MCG/2 ML VIAL ONE (10:42)
[2018-06-15] MEDS ORDERED: Promethazine HCl 25 MG/ML VIAL SLOW IVP PRN (12:00)
[2018-06-15] MEDS ORDERED: Ondansetron HCl/PF 4 MG/2 ML Vial IVP PRN (12:00)
[2018-06-15] MEDS ORDERED: Metoclopramide HCl 10 MG/2 ML VIAL ONE (14:01)
[2018-06-15] MEDS ORDERED: Ondansetron PF 4 MG/2 ML Vial ONE (14:01)
[2018-06-15] MEDS ORDERED: PROPOFOL 200 MG/20 ML VIAL ONE (14:01)
[2018-06-15] MEDS ORDERED: Glycopyrrolate 0.2 MG/ML 5 ML SYRINGE ONE (14:01)
[2018-06-15] MEDS ORDERED: Lisinopril 20 MG TAB PO SCH (15:15)
[2018-06-15] MEDS ORDERED: Metoprolol Tartrate 25 MG TAB PO SCH ×2 (15:15→21:00)
[2018-06-15] MEDS: Ibuprofen 800 MG TAB PO SCH ×2 (16:48→21:44)
[2018-06-15] MEDS: Lactated Ringer's 1,000 ML IV SCH (18:05)
[2018-06-15] MEDS: NPH, Human Insulin Isophane 300 UNIT/3 ML VIAL SC SCH (22:04)
[2018-06-16] MEDS: Ibuprofen 800 MG TAB PO SCH ×2 (05:52→13:49)
[2018-06-16] MEDS: HYDROcodone/Acetaminophen 5/325 mg Tablet PO PRN ×2 (05:52→13:48)
[2018-06-16] MEDS: Lactated Ringer's 1,000 ML IV SCH ×2 (05:53→10:29)
[2018-06-16 07:27] LABS: #Eosinphils 0.1 thou/uL (0.0-0.7); #Lymphocytes 2.6 thou/uL (1.20-3.40); #Monocytes 1.1 thou/uL (0.11-0.59); #Neutrophils 6.8 thou/uL (1.40-6.50); %Basophils 0.4 % (0.0-1.0); %Eosinophils 0.6 % (0.0-10.0); %Lymphocytes 24.5 % (21.0-51.0); %Monocytes 10.2 % (0.0-10.0); %Neutrophils 64.2 % (42.0-75.0); Hemoglobin 10.3 g/dL (12.0-16.0); Mean Corpuscular HGB CONC 30.3 g/dL (32.0-36.0); Mean Corpuscular Hemoglobin 25.1 pg (27.0-31.0); Mean Corpuscular Volume 82.8 fL (78.0-98.0); Mean Platelet Volume 12.3 fL (7.4-10.4); Platelet Count 167 thou/uL (130-400); Polychromasia SLIGHT = 2-3 cells (100X) (0-2/hpf); RBC Distribution Width 23.5 % (11.5-14.5); Red Blood Cell (RBC) Count 4.08 mill/uL (4.20-5.40); White Blood Cell (WBC) Count 10.5 thou/uL (4.8-10.8)
[2018-06-16 07:30] LABS: Anion Gap 9 mmol/L (10-20); BUN (Urea Nitrogen) 14 mg/dL (7.0-18.7); Calc. Creatinine Clearance 144 mL/min (70-130); Calcium 8.3 mg/dL (7.8-10.44); Carbon Dioxide 24 mmol/L (22-29); Chloride 106 mmol/L (98-107); Estimated GFR-MDRD 80; Glucose 79 mg/dL (70-105); Potassium 4.3 mmol/L (3.5-5.1); Sodium 135 mmol/L (136-145)
[2018-06-16] MEDS ORDERED: Metoprolol Tartrate 25 MG TAB PO SCH (09:00)
[2018-06-16] MEDS ORDERED: FLUoxetine HCl 20 MG CAP PO SCH (09:00)
[2018-06-16] MEDS ORDERED: Lisinopril 20 MG TAB PO SCH (09:00)
--- NOTE | 2018-06-16 10:35 | OP ---
DATE OF PROCEDURE: 06/15/2018 PREOPERATIVE DIAGNOSES: 1. Abnormal uterine bleeding. 2. Uterine fibroids. 3. History of anemia with recent transfusion. POSTOPERATIVE DIAGNOSES: 1. Abnormal uterine bleeding. 2. Uterine fibroids. 3. History of anemia with recent transfusion. PROCEDURE PERFORMED: Robotic-assisted total laparoscopic hysterectomy with a right salpingectomy. SURGEON: Erin Tijerina DO FILLING AND PACKING SUPERVISOR: Jared Cline DO, MS COMPLICATIONS: None. ESTIMATED BLOOD LOSS: 100 mL. URINARY OUTPUT: Approximately 100 mL. FINDINGS: Normal-appearing external genitalia. Normal vaginal and cervical epithelium. Enlarged fibroid uterus approximately 13 to 14 cm with enlarged fundal fibroid that was also within the broad ligament on the left aspect. Evidence of a prior left salpingectomy. Normal-appearing ovaries and normal-appearing right fallopian tube. A small umbilical hernia containing only omentum. ANESTHESIA: General. SPECIMENS: Uterus, cervix, and right fallopian tube. INDICATIONS FOR PROCEDURE: Ms. Karen Whitlock is a 48-year-old G4, P4, who presented to clinic due to heavy menstrual bleeding along with pelvic pain and dysmenorrhea. The patient was evaluated, noting to have an enlarged fibroid uterus with a 7 to 8 cm fundal fibroid. She also underwent endometrial biopsy and a Pap smear, which were both benign. The patient had recently been admitted for heavy bleeding and resulting anemia. She was counseled on options and elected to have a surgical intervention with a hysterectomy. This patient preferred minimally invasive technique, so she was scheduled for a laparoscopic hysterectomy using the da Russ robotic system. PROCEDURE IN DETAIL: The patient was brought to the operating room. She was placed under general anesthesia. The patient was placed in dorsal lithotomy position using Yellofins stirrups. She was prepped and draped in a sterile fashion. An official time-out was performed. She was given Ancef preoperatively for surgical prophylaxis, and her SCDs were in place. A single-sided speculum was placed in the vagina, and the anterior aspect of the cervix was grasped using a single-tooth tenaculum, and the cervix was sequentially dilated. The uterus was sounded to approximately 13 cm. A PASHA manipulator was then placed and appropriately secured to the ectocervix. All other instruments were removed, gloves were exchanged, and attention was turned to the abdominal portion. A supraumbilical abdominal incision was made using a scalpel, and a Veress needle was inserted into the peritoneal cavity. Peritoneal cavity was insufflated noting a normal pressure. A 12 mm trocar was then placed into this site. The patient was placed in Trendelenburg position. The pelvic anatomy was evaluated noting the findings above. Robotic trocars and urology physician assistant trocar were placed all under direct visualization and using local anesthesia. The robot was then appropriately secured to the patient, and instruments were inserted. A small amount of omentum within the small umbilical hernia was then removed and transected and coagulated. Attention was turned to the left aspect of the uterus, where the left round ligament was coagulated multiple times and transected allowing entrance into the broad ligament anteriorly, so the broad ligament was undermined and transected down towards the bladder, anteriorly reflecting the bladder on the left aspect. The left utero-ovarian ligament was then coagulated multiple times and transected allowing the pelvic side wall to fall lateral away from the uterus. The posterior leaf of the peritoneum was undermined and transected down towards the level of the uterosacral ligament. The fibroid was encompassing a portion of the broad ligament on the left side; therefore, the peritoneum and broad ligament were both bluntly and sharply dissected. The ureter was identified within the broad ligament and noted to be away from the uterine vasculature. The uterine vessels on the left side were then skeletonized and coagulated multiple times, however, not yet transected. Attention was then turned over to the right aspect. The right round ligament was coagulated multiple times and transected allowing entrance into the broad ligament. The right utero-ovarian ligament was also coagulated and transected allowing the uterus to be free from the pelvic side wall. A right salpingectomy was performed from distal to proximal, and completely removing the fallopian tube. Attention was turned to the anterior leaf of the broad ligament again. This was undermined and transected allowing inferior reflection of the bladder. This dissection did take time as there were several adhesions from the fibroid to the peritoneum, which required both blunt and sharp dissection. The posterior aspect of the broad ligament on the right side was then carried down to the level of the uterosacral ligament. The ureter on the right side was also identified. The right uterine vessels were further skeletonized. The right uterine vessels were coagulated multiple times and transected. The left uterine vessels were then also coagulated multiple times and transected. The colpotomy was initially started posteriorly due to the weight of the uterus. This was carried circumferentially around the PASHA manipulator and colpotomy cup until the cervix was completely away from the vaginal tissue. There was an area of bleeding along the left apex of the vaginal cuff due to vaginal vasculature. These were coagulated multiple times. The uterus and cervix were then delivered through the vagina. The pelvis was then irrigated and cleared of all clots and debris. The vaginal cuff was then elevated, and the areas of bleeding on the left aspect of the cuff were then coagulated and controlled. The vaginal cuff was then closed in a running fashion using 2-0 Stratafix suture. The suture was then cut and removed, and the pelvis was again irrigated and cleared of all clot and debris. The vaginal cuff and all pedicle sites were hemostatic. Tisseel was then placed over the vaginal cuff and the pedicles sites for improved hemostasis postoperatively. The instruments were then removed. The robot was undocked from the patient. The abdomen was deflated. The patient was taken out of Trendelenburg position. The trocars were removed. The deep tissue at the supraumbilical site was closed using 0-Vicryl. It was difficult to completely appreciate that all the fascia were incorporated into this closure. The skin was closed using 4-0 Monocryl and Dermabond at all tissue sites. The patient was extubated without difficulty, and transferred to the PACU in hemodynamically stable condition. Job ID: [id number] [facility]
--- NOTE | 2018-06-16 11:17 | PRG ---
DATE OF SERVICE: 06/16/2018 HISTORY OF PRESENT ILLNESS: Postoperative day #1, status post robotic-assisted total laparoscopic hysterectomy with a right salpingectomy. SUBJECTIVE: The patient reports mild pain with good pain control with oral medications. She denies any vaginal bleeding. She has been able to void and is passing flatus. The patient is ambulating and has no other complaints. OBJECTIVE: VITAL SIGNS: Temperature is 98.4, pulse is 66, respiratory rate is 16, oxygen saturation is 97%, and blood pressure is 109/59. GENERAL: In no acute distress. CARDIOVASCULAR: Regular rate and rhythm. RESPIRATORY: Unlabored breathing. Clear to auscultation. ABDOMEN: Soft, mild distention. Incision is clean, dry, and intact. Mild tenderness to palpation. Active bowel sounds. EXTREMITIES: Negative Homans. Negative edema. SCDs in place. LABORATORY DATA: White blood cell is 10.5, hemoglobin is 10.3, hematocrit is 33.8, creatinine is 0.77. ASSESSMENT: Postoperative day 1, status post robotic-assisted total laparoscopic hysterectomy with right salpingectomy with chronic iron deficiency anemia. PLAN: The patient has met all requirements for discharge. We will discharge back to senior care today with appropriate postoperative followup. The patient will receive p.r.n. pain medications and continue her iron supplementation. Job ID: [id number] [facility]
[2018-06-16] MEDS: NPH, Human Insulin Isophane 300 UNIT/3 ML VIAL SC SCH (11:46)
[2018-06-16 12:17] VITALS: BP 111/57; TEMP 97.8
--- NOTE | 2018-06-16 14:20 | PQF ---
CLINICAL DOCUMENTATION IMPROVEMENT CLARIFICATION FORM: ICD-10 Updated PLEASE DO AN ADDENDUM TO THE PROGRESS NOTE WITH ANY DOCUMENTATION UPDATES OR ADDITIONS AND CARRY THROUGH TO DC SUMMARY. THANK YOU. DATE: 06/16/18 ATTN: DR. VALDEZ Please exercise your independent, professional judgment in responding to the clarification form. Clinical indicators are provided on the bottom of this form for your review Please check appropriate box(s): [ ] Acute blood loss anemia [ ] Post-op anemia related to acute blood loss [ ] Anemia: [ ] Aplastic [ ] Nutritional [ ] Drug induced (specify) ___ [ ] Hemolytic [ ] Hereditary [ ] Acquired [ ] Autoimmune [ ] Non-autoimmune [ ] Enzyme disorder [ X] Chronic Anemia: [ X] Blood loss [ ] Hemolytic [ ] Simple [ ] Due to Vitamin B12 Deficiency [ ] Other [ ] Anemia of Chronic Disease (please specify) [ ] Other diagnosis [ ] Unable to determine In addition, please specify: Present on Admission (POA): [ X ] Yes [ ] No [ ] Unable to determine For continuity of documentation, please document condition throughout progress notes and discharge summary. Thank You. CLINICAL INDICATORS - SIGNS / SYMPTOMS / LABS HGN 06/15: 12.1 HGN 06/16: 10.3 RISKS: ABNORMAL UTERINE BLEEDING UTERINE FIBROIDS H/O ANEMIA TREATMENT: LAPAROSCOPIC HYSTERECTOMY AND RIGHT SALPINGECTOMY BLOOD TRANSFUSIONS X 2 SERIAL LABS (This form is maintained as a part of the permanent medical record) 2014 [facility]. All Rights Reserved [email or web address] Office: [phone] [facility]
--- NOTE | 2018-06-17 06:33 | DIS ---
DATE OF ADMISSION: 06/15/2018 DATE OF DISCHARGE: 06/16/2018 ADMISSION DIAGNOSES: Postoperative pain control, status post robotic-assisted total laparoscopic hysterectomy. DISCHARGE DIAGNOSIS: Postoperative pain control, status post robotic-assisted total laparoscopic hysterectomy. ADMISSION AND DISCHARGE PHYSICIAN: Erin Tijerina DO BRIEF HOSPITAL COURSE: Ms. Karen Whitlock is a 48-year-old G4, P4, who presented with complaints of abnormal uterine bleeding related to uterine fibroid. The patient subsequently underwent a robotic-assisted total laparoscopic hysterectomy with right salpingectomy. Her intraoperative and postoperative course had been benign. She is meeting all requirements for discharge and will be discharged back to [facility] today. Her labs and vital signs have remained stable. DISCHARGE MEDICATIONS: 1. Tylenol No. 3 one tablet every 6 hours p.r.n. pain, #30, zero refills. 2. Motrin 800 mg one tablet every 8 hours p.r.n. pain, #60, zero refills. FOLLOWUP: Follow up in 2 weeks. DIET: Diabetic diet. ACTIVITY RESTRICTIONS: No heavy pushing, pulling, or lifting and pelvic rest x6 weeks. Job ID: [id number]
== END 2018-06-16 14:08 | DRG 743 ==
LOC: SURG A 05:38 → 3SE 11:32 → EDSTATUS 14:01
PROVIDERS: ADMIT Obstetrics & Gynecology; ATTEND Obstetrics & Gynecology
PROC: 0UT94ZZ Resection of Uterus, Percutaneous Endoscopic Approach (ICD-10-PCS; principal; 2018-06-15)
PROC: 0UT54ZZ Resection of Right Fallopian Tube, Percutaneous Endoscopic Approach (ICD-10-PCS; 2018-06-15)
PROC: 8E0W4CZ Robotic Assisted Procedure of Trunk Region, Percutaneous Endoscopic Approach (ICD-10-PCS; 2018-06-15)
DX: N93.8 Other specified abnormal uterine and vaginal bleeding (principal); D25.9 Leiomyoma of uterus, unspecified; D50.9 Iron deficiency anemia, unspecified
CPT/HCPCS: 36415; 36416; 80048; 80053; 83036; 85025; 86850; 86900; 86901; 88307; 96374; J0131; J0670; J1815; J2250; J2270; J2405; J2550; J2704; J2765; J3010

== ENCOUNTER 2018-08-05 10:29 | Outpatient (CLI) | payer OTHER ==
[~2018-08-05 10:29] MED LIST: Gadobenate Dimeglumine 529 MG/1 ML (20ML VIAL) ONE
--- NOTE | 2018-08-05 14:13 | MRI ---
MRI BRAIN WITH AND WITHOUT IV CONTRAST: HISTORY: Persistent vertigo. FINDINGS: No restricted diffusion is seen. There is no evidence of infarct, hemorrhage, mass, midline shift, o r abnormal extraaxial fluid collections. No abnormal post contrast enhancement is seen. The ventric ular size is normal. The basilar cisterns are patent. No signal abnormalities are seen on the highl y sensitive FLAIR images. No blood products are noted on the gradient echo sequences. There is a ti ny amount of fluid in the left mastoid air cells. A vascular blush is seen in the right frontal lobe (image 16, series 10), likely due to DVA/venous angioma. IMPRESSION: No significant abnormalities are identified. POS: [facility]
== END 2018-08-05 10:30 | disposition home or self-care (01) ==
LOC: BICMRI 10:29
PROVIDERS: ATTEND Family Medicine
DX: R42 Dizziness and giddiness (principal)
CPT/HCPCS: 70553; 82565; A9579

== ENCOUNTER 2018-08-13 09:03 | Emergency (ER) | payer OTHER ==
--- NOTE | 2018-08-13 09:34 | RAD ---
CHEST 1 VIEW: Date: 08/13/18 HISTORY: Chest pain. COMPARISON: 05/15/18. FINDINGS: Monitor leads overlie the chest. Heart size is within normal limits. Lungs are clear. IMPRESSION: No acute intrathoracic disease. POS: [facility]
[2018-08-13] MEDS ORDERED: Lidocaine Viscous Sol 2% 15 ml UD Cup ONE (09:48)
[2018-08-13] MEDS ORDERED: Pantoprazole 40 MG VIAL ONE (09:48)
[2018-08-13] MEDS ORDERED: Mag-Al 1200 mg/1200 mg/30 ML UDCUP ONE (09:48)
[2018-08-13 10:02] LABS: #Eosinphils 0.1 thou/uL (0.0-0.7); #Lymphocytes 1.6 thou/uL (1.20-3.40); #Monocytes 0.8 thou/uL (0.11-0.59); #Neutrophils 5.3 thou/uL (1.40-6.50); %Basophils 0.5 % (0.0-1.0); %Eosinophils 1.6 % (0.0-10.0); %Lymphocytes 20.9 % (21.0-51.0); %Monocytes 10.1 % (0.0-10.0); Hemoglobin 13.9 g/dL (12.0-16.0); Mean Corpuscular HGB CONC 30.4 g/dL (32.0-36.0); Mean Corpuscular Hemoglobin 26.9 pg (27.0-31.0); Mean Corpuscular Volume 88.3 fL (78.0-98.0); Mean Platelet Volume 8.4 fL (7.4-10.4); Platelet Count 148 thou/uL (130-400); RBC Distribution Width 17.9 % (11.5-14.5); Red Blood Cell (RBC) Count 5.19 mill/uL (4.20-5.40); White Blood Cell (WBC) Count 7.9 thou/uL (4.8-10.8)
[2018-08-13 10:08] LABS: ALT (SGPT) 12 U/L (8-55); AST (SGOT) 15 U/L (5-34); Albumin 4.1 g/dL (3.5-5.0); Alkaline Phosphatase 76 U/L (40-150); Anion Gap 17 mmol/L (10-20); BUN (Urea Nitrogen) 19 mg/dL (7.0-18.7); Bilirubin, Total 0.2 mg/dL (0.2-1.2); Calc. Creatinine Clearance 0 mL/min (70-130); Calcium 9.1 mg/dL (7.8-10.44); Carbon Dioxide 16 mmol/L (22-29); Chloride 108 mmol/L (98-107); Estimated GFR-MDRD 64; Globulin 4.1 g/dL (2.4-3.5); Glucose 187 mg/dL (70-105); Lipase 128 U/L (8-78); Potassium 5.2 mmol/L (3.5-5.1); Protein, Total 8.2 g/dL (6.0-8.3); Sodium 136 mmol/L (136-145)
[2018-08-13 10:43] LABS: Hypochromia SLIGHT = 6-15 cells (100X) (0-5/hpf); MDiff Complete? YES; Platelet Morphology Comment Appears Adequate
[2018-08-13] MEDS ORDERED: Ketorolac Tromethamine 30 MG/ML VIAL ONE (11:00)
== END 2018-08-13 12:49 | disposition home or self-care (01) ==
LOC: ERS 09:03
DX: K20.9 Esophagitis, unspecified (principal); E10.9 Type 1 diabetes mellitus without complications; E78.5 Hyperlipidemia, unspecified; I10 Essential (primary) hypertension; F41.9 Anxiety disorder, unspecified; Z79.4 Long term (current) use of insulin; Z79.899 Other long term (current) drug therapy
CPT/HCPCS: 36415; 71045; 80053; 83690; 83880; 84484; 85025; 93005; 94760; 96361; 96374; 96375; C9113; J1885

== ENCOUNTER 2018-08-20 05:59 | Day surgery (SDC) | payer OTHER ==
[2018-08-19 11:23] VITALS: BMI 40.1
[2018-08-20] MEDS ORDERED: EPINEPHrine 0.3 MG, Dextrose 50% 3 ML in Ophthalmic Irrigation Solution 500 ML FS SCH (06:00)
[2018-08-20] MEDS ORDERED: Cyclopentolate 1% Opth Drop 2 ML BOT ONE (07:21)
[2018-08-20] MEDS ORDERED: Phenylephrine 2.5% Ophth Soln 5 ML BOT ONE (07:21)
[2018-08-20] MEDS ORDERED: Midazolam HCl 2 mg/2 ml Vial ONE (10:35)
[2018-08-20] MEDS ORDERED: Fentanyl 100 MCG/2 ML VIAL ONE (10:35)
[2018-08-20] MEDS ORDERED: PROPOFOL 20 ML ONE (10:41)
[2018-08-20] MEDS ORDERED: Triamcinolone 40 MG/ML VIAL ONE (12:12)
[2018-08-20] MEDS ORDERED: CEFAZOLIN 1 GM VIAL ONE (12:12)
[2018-08-20] MEDS ORDERED: Bupivacaine 0.75% 10 ML AMP ONE (12:12)
[2018-08-20] MEDS ORDERED: Lidocaine 1% PF 5 ML VIAL ONE (12:12)
[2018-08-20] MEDS ORDERED: Maxitrol 0.1% Opth Oint 3.5 GM TUBE ONE (12:12)
[2018-08-20] MEDS ORDERED: PROPOFOL 200 MG/20 ML VIAL ONE (12:12)
[2018-08-20] MEDS ORDERED: Lidocaine 4% PF 5 ML AMP ONE (12:12)
--- NOTE | 2018-08-20 17:28 | OP ---
DATE OF PROCEDURE: 08/20/2018 PREOPERATIVE DIAGNOSIS: Tractional retinal detachment. POSTOPERATIVE DIAGNOSIS: Tractional retinal detachment. PROCEDURE PERFORMED: Pars plana vitrectomy, retinal detachment repair of left eye. SURGEON: Dr. Padilla. ANESTHESIA: Local with monitored anesthesia care. DESCRIPTION OF PROCEDURE: The patient was identified in the preoperative holding area. Appropriate informed consent for the planned surgical procedure on the left eye had been obtained. The patient was transported to the operative suite. Appropriate cardiopulmonary monitoring was established. Local anesthesia obtained using retrobulbar modified Van Lint lid block using 50:50 mixture of 4% lidocaine and 0.75% bupivacaine. The patient was prepped and draped in the usual sterile manner for ophthalmic surgery on left eye. Lid speculum was placed in the left eye. A 25-gauge trocar was placed through the conjunctiva and sclera superotemporally, inferotemporally, and supranasally. Infusion line was placed inferotemporally. Light pipe vitreous cutter inserted to the eye. Core vitrectomy was performed. Traction was removed from the retinal surface and peeled into the periphery of the lower aspect. No holes were identified. Panretinal photocoagulation was placed into all non-macular areas of the retina. Vitreous hemorrhage was cleared. Trocars were removed. Eye was noted to retain pressure well. Retrobulbar Kenalog sequential Ancef were placed. Atropine antibiotic ointment was placed and the eye was patched and shielded. The patient was taken to postop recovery in good condition, having suffered no immediate perioperative complications. The patient was instructed to keep the patch and shield on, avoid lifting and bending. Follow up with Dr. Padilla. Job ID: [id number]
== END 2018-08-20 12:20 ==
LOC: SDC 05:59
PROVIDERS: ATTEND Ophthalmology Retina Specialist
PROC: 08T53ZZ Resection of Left Vitreous, Percutaneous Approach (ICD-10-PCS; principal; 2018-08-20)
DX: H33.42 Traction detachment of retina, left eye (principal); E11.9 Type 2 diabetes mellitus without complications; Z79.4 Long term (current) use of insulin
CPT/HCPCS: 36416; J0171; J0690; J2001; J2250; J2704; J3010; J3301; J3490

== ENCOUNTER 2018-12-31 23:30 | Emergency (ER) | payer OTHER ==
[2019-01-01 00:29] LABS: #Basophils 0.1 thou/uL (0.0-0.2); #Eosinphils 0.1 thou/uL (0.0-0.7); #Neutrophils 4.8 thou/uL (1.40-6.50); %Basophils 0.8 % (0.0-1.0); %Eosinophils 1.7 % (0.0-10.0); %Lymphocytes 25.5 % (21.0-51.0); %Neutrophils 60.1 % (42.0-75.0); Mean Corpuscular HGB CONC 33.5 g/dL (32.0-36.0); Mean Corpuscular Hemoglobin 30.1 pg (27.0-31.0); Mean Corpuscular Volume 89.8 fL (78.0-98.0); Mean Platelet Volume 10.4 fL (7.4-10.4); Platelet Count 181 thou/uL (130-400); RBC Distribution Width 11.7 % (11.5-14.5); White Blood Cell (WBC) Count 7.9 thou/uL (4.8-10.8)
[2019-01-01 00:49] LABS: ALT (SGPT) 12 U/L (8-55); AST (SGOT) 12 U/L (5-34); Albumin 3.6 g/dL (3.5-5.0); Alkaline Phosphatase 68 U/L (40-150); Anion Gap 13 mmol/L (10-20); BUN (Urea Nitrogen) 19 mg/dL (7.0-18.7); Bilirubin, Total 0.3 mg/dL (0.2-1.2); CK (CPK) 169 U/L (29-168); Calc. Creatinine Clearance 0 mL/min (70-130); Calcium 8.8 mg/dL (7.8-10.44); Carbon Dioxide 27 mmol/L (22-29); Chloride 103 mmol/L (98-107); Estimated GFR-MDRD 50; Globulin 2.7 g/dL (2.4-3.5); Glucose 257 mg/dL (70-105); Lipase 71 U/L (8-78); Potassium 4.1 mmol/L (3.5-5.1); Protein, Total 6.3 g/dL (6.0-8.3); Sodium 139 mmol/L (136-145)
--- NOTE | 2019-01-02 16:42 | EKG ---
Test Reason : Blood Pressure : / mmHG Vent. Rate : 075 BPM Atrial Rate : 075 BPM P-R Int : 142 ms QRS Dur : 082 ms QT Int : 422 ms P-R-T Axes : 035 -06 030 degrees QTc Int : 471 ms Normal sinus rhythm Minimal voltage criteria for LVH, may be normal variant Borderline ECG Confirmed by BRITTNEE PEREZ, YULIA ([id number]), tape editor ANGY PARHAM ([id number]) on 01/02/2019 4:42:26 PM Referred By: Confirmed By:YULIA BEAULIEU MD
== END 2019-01-01 01:47 | disposition home or self-care (01) ==
LOC: ERS 23:30
DX: R53.1 Weakness (principal); T46.3X5A Adverse effect of coronary vasodilators, initial encounter; E10.9 Type 1 diabetes mellitus without complications; E78.5 Hyperlipidemia, unspecified; I10 Essential (primary) hypertension; F17.210 Nicotine dependence, cigarettes, uncomplicated; Z79.899 Other long term (current) drug therapy; Z79.4 Long term (current) use of insulin
CPT/HCPCS: 36415; 80053; 82550; 83690; 84484; 85025; 93005; 94760; 96360; 96361

== ENCOUNTER 2019-02-09 14:39 | Emergency (ER) | payer OTHER ==
[2019-02-09 16:10] LABS: #Eosinphils 0.1 thou/uL (0.0-0.7); #Lymphocytes 2.6 thou/uL (1.20-3.40); #Neutrophils 6.3 thou/uL (1.40-6.50); %Basophils 0.4 % (0.0-1.0); %Lymphocytes 26.1 % (21.0-51.0); %Monocytes 9.9 % (0.0-10.0); %Neutrophils 62.6 % (42.0-75.0); Hemoglobin 13.1 g/dL (12.0-16.0); Mean Corpuscular Hemoglobin 29.6 pg (27.0-31.0); Mean Corpuscular Volume 89.7 fL (78.0-98.0); Platelet Count 199 thou/uL (130-400); RBC Distribution Width 12.1 % (11.5-14.5); Red Blood Cell (RBC) Count 4.41 mill/uL (4.20-5.40)
[2019-02-09] MEDS ORDERED: Albuterol Sulfate 2.5 mg/0.5 ml Neb ONE (16:37)
[2019-02-09 16:38] LABS: ALT (SGPT) 9 U/L (8-55); AST (SGOT) 13 U/L (5-34); Alkaline Phosphatase 68 U/L (40-150); Anion Gap 11 mmol/L (10-20); BUN (Urea Nitrogen) 27 mg/dL (7.0-18.7); Bilirubin, Total 0.7 mg/dL (0.2-1.2); CK (CPK) 136 U/L (29-168); Calc. Creatinine Clearance 0 mL/min (70-130); Calcium 9.6 mg/dL (7.8-10.44); Carbon Dioxide 27 mmol/L (22-29); Chloride 105 mmol/L (98-107); Estimated GFR-MDRD 59; Globulin 3.6 g/dL (2.4-3.5); Glucose 96 mg/dL (70-105); Potassium 4.4 mmol/L (3.5-5.1); Protein, Total 7.6 g/dL (6.0-8.3); Sodium 139 mmol/L (136-145)
--- NOTE | 2019-02-09 17:13 | RAD ---
2 VIEWS CHEST: Date: 02/09/19 HISTORY: Chest pain and cough. COMPARISON: 08/13/18. FINDINGS: Cardiac silhouette and pulmonary vasculature are within normal limits. Lungs are clear. Degenerative changes seen in the spine with calcification of anterior longitudinal ligament. There has been no int erval change from prior exam. IMPRESSION: No acute cardiopulmonary process. POS: [facility]
== END 2019-02-09 17:44 ==
LOC: ERS 14:39
DX: R05 Cough (principal); E10.9 Type 1 diabetes mellitus without complications; E78.5 Hyperlipidemia, unspecified; I10 Essential (primary) hypertension; F41.9 Anxiety disorder, unspecified; F17.210 Nicotine dependence, cigarettes, uncomplicated; D64.9 Anemia, unspecified; Z79.4 Long term (current) use of insulin; Z79.899 Other long term (current) drug therapy
CPT/HCPCS: 36415; 71046; 80053; 82550; 84484; 85025; 93005; 94640; J7611